=== PATIENT | female | born 1935 | race Caucasian/White ===

== ENCOUNTER 2020-10-05 07:50 | Day surgery (SDC) | payer MEDICARE, OTHER ==
[2020-10-05] MEDS ORDERED: Propofol 200 MG/20 ML SDV ONE (09:50)
[2020-10-05] MEDS: Lactated Ringers 1,000 ML IV SCH (10:05)
--- NOTE | 2020-10-05 12:22 | OR ---
PREOPERATIVE DIAGNOSES: Nausea, vomiting, and epigastric pain. POSTOPERATIVE DIAGNOSES: Mild antritis and perhaps a small sliding hiatal hernia. PROCEDURE PERFORMED: Esophagogastroduodenoscopy with biopsies. ANESTHESIA: MAC anesthesia. COMPLICATIONS: None. BLOOD LOSS: Minimal. FINDINGS: 1. There was perhaps some mild antritis. 2. The duodenum was unremarkable. 3. Perhaps a 2 cm sliding hiatal hernia. 4. Z-line was regular at 36 cm. 5. No esophagitis or abnormalities of the esophagus. INDICATION FOR PROCEDURE: Alesha Carrillo is an 85-year-old female who has been struggling with some nausea, vomiting, and epigastric discomfort when she eats fatty foods or if she overeats. She does not have any right upper quadrant pain. She does still have her gallbladder. She also has had a 45-pound weight loss over the last 6 months which has been unintentional. She denies a history of peptic ulcer disease in the past and has never had an upper endoscopy. DETAILS OF PROCEDURE: Informed consent was obtained. The patient was brought to the procedure room and placed in the left lateral decubitus position. MAC anesthesia was induced by Anesthesia colleagues. A bite block was put in place and the endoscope was introduced into the patient's mouth, down the esophagus, into the stomach. The pylorus was intubated and the duodenum was examined up to the second portion. The body and fundus of the stomach were examined. We took some biopsies of the antrum to be sent for H pylori as there was mild gross antritis. The patient was coughing a fair bit during the procedure, but during the times when she was not coughing, there was perhaps a small 1 to 2 cm hiatal hernia. This certainly did not appear significant or to be a main contributor to her complaints. The endoscope was then withdrawn. The esophagus examined on the way out and there were no abnormalities. The patient tolerated the procedure well, was awoken from anesthesia by Anesthesia colleagues without incident. PATHOLOGY: RECOMMENDATIONS: RKM: 10/05/2020 11:04:31 MODL: 10/05/2020 12:06:29 /[id number]
== END 2020-10-05 12:05 | disposition home or self-care (01) ==
LOC: VM.SDS 07:50
PROVIDERS: ATTEND Student in an Organized Health Care Education/Training Program
DX: K29.50 Unspecified chronic gastritis without bleeding (principal); K31.89 Other diseases of stomach and duodenum; K44.9 Diaphragmatic hernia without obstruction or gangrene; R63.4 Abnormal weight loss; E78.2 Mixed hyperlipidemia; E66.01 Morbid (severe) obesity due to excess calories; Z68.36 Body mass index [BMI] 36.0-36.9, adult; Z79.899 Other long term (current) drug therapy
CPT/HCPCS: 00731; J2704; J7120